=== PATIENT | male | born 1935 | race Caucasian/White ===

== ENCOUNTER → 2017-12-26 | Outpatient (CLI) | payer MEDICARE, OTHER ==
[~2017-12-26] MED LIST: ASPI81CH PO; CHOL10002 PO; CIPR500 PO; FENO145 PO; HYDACE5325 PO; LATA.005SO BOTHEYES; LEVSOD25 PO; LOVA40 PO; METO50 PO; MULVITMIND PO; OMEP20ER PO; SITA25T2 PO; TRIPLE FLEX; VALS80 PO
[2017-12-26 13:02] LABS: Microalb/Creat Ratio UR, Rand 38.807 mg/g (0.000-30.000); Microalbumin, Random Urine 42.3 mg/L (0.000-20.000)
== END ==
LOC: LAB 09:50 → LAB SHORT 09:50
PROVIDERS: Nurse Practitioner Family
DX: E11.9 Type 2 diabetes mellitus without complications (principal)
CPT/HCPCS: 82043; 82570

== ENCOUNTER → 2018-12-24 | Outpatient (CLI) | payer MEDICARE, OTHER ==
[2018-12-24 15:19] LABS: Microalb/Creat Ratio UR, Rand 12.429 mg/g (0.000-30.000); Microalbumin, Random Urine 17.4 mg/L (0.000-20.000)
== END | disposition home or self-care (01) ==
LOC: LAB 13:31 → LAB SHORT 13:31
PROVIDERS: Nurse Practitioner Family
DX: E11.9 Type 2 diabetes mellitus without complications (principal)
CPT/HCPCS: 82043; 82570